=== PATIENT | male | born 1975 | race Caucasian/White ===

== ENCOUNTER 2018-05-12 02:46 | Emergency (ER) | payer OTHER ==
[~2018-05-12] VITALS: Ht 170.2 cm; Wt 70.3 kg
[2018-05-12 02:55] VITALS: BP 124/72
[2018-05-12] MEDS ORDERED: DEXAMETHASONE SOD PHOS 20 MG/5 ML VIAL. IM ONE (03:15)
[2018-05-12] MEDS ORDERED: KETOROLAC 60 MG/2 ML INJ. IM ONE (03:15)
[2018-05-12] MEDS ORDERED: NAPR-683 PO (03:33)
[2018-05-12] MEDS ORDERED: TRAM50TA PO (03:33)
[2018-05-12] MEDS ORDERED: CYCL10TA2 PO (03:33)
--- NOTE | 2018-05-12 03:33 | PHYS DOC ---
Past Medical History Past Medical History: No Pertinent History Past Surgical History: No Surgical History Alcohol Use: None Drug Use: None Adult General Chief Complaint Chief Complaint: BACK PAIN OR INJURY HPI HPI Patient is a 42-year-old male who presents with complaint of right-sided lower back pain that started yesterday when he was moving his couch. Patient states that he felt a twinge in his back and pain has been present ever since. He states that he has tried [id number] medications as well as a hot bath. He states the hot bath and felt but after he got out of the bath the pain has returned. He rates that pain at a 7 out of 10. He denies any radiation of pain into his legs. He denies any loss of bowel or bladder control. He states that pain is worsened with movement. He describes pain as a dull ache. Review of Systems Review of Systems Constitutional: Denies fever or chills [] Respiratory: Denies cough or shortness of breath [] Cardiovascular: Denies chest pain[] GI: Denies abdominal pain, nausea, vomiting [] : Denies dysuria or hematuria [] Musculoskeletal: Complains of lower back pain[] Integument: Denies rash or skin lesions [] Neurologic: Denies loss of bowel or bladder control[] All other systems were reviewed and found to be within normal limits, except as documented in this note. Current Medications Current Medications Current Medications Medications (Trade) Dose Ordered Sig/[facility] Start Time Stop Time Status Last Admin Dose Admin Dexamethasone Sodium Phosphate (Decadron) 10 mg 1X ONCE 05/12/18 03:15 05/12/18 03:16 DC Ketorolac Tromethamine (Toradol Im) 60 mg 1X ONCE 05/12/18 03:15 05/12/18 03:16 DC Allergies Allergies Allergies Coded Allergies Type Severity Reaction Last Updated Verified No Known Drug Allergies 01/09/16 No Physical Exam Physical Exam Constitutional: Well developed, well nourished, no acute distress, non-toxic appearance. [] Neck: Normal range of motion, no tenderness, supple, no stridor. [] Cardiovascular:Heart rate regular rhythm, no murmur [] Lungs & Thorax: Bilateral breath sounds clear to auscultation [] Back: There is tenderness to palpation with palpable spasm noted in the right lumbar paraspinal musculature. [] Neurologic: Alert and oriented X 3, normal motor function, normal sensory function. [] EKG EKG [] Radiology/Procedures Radiology/Procedures [] Course & Med Decision Making Course & Med Decision Making Pertinent Labs and Imaging studies reviewed. (See chart for details) [] Dragon Disclaimer Dragon Disclaimer This electronic medical record was generated, in whole or in part, using a voice recognition dictation system. Departure Departure Impression: Primary Impression: Acute lumbar myofascial strain Disposition: HOME, SELF-CARE Condition: STABLE Referrals: NO PCP (PCP) Patient Instructions: Lumbosacral Strain Scripts Naproxen (NAPROSYN) 500 Mg Tablet 1 TAB PO BID PRN for PAIN, #20 TAB Prov: YUMIKO PRATT Jr. DO 05/12/18 Tramadol Hcl (TRAMADOL HCL) 50 Mg Tablet 50 MG PO Q6HRS PRN for PAIN, #15 TAB Prov: YUMIKO PRATT Jr. DO 05/12/18 Cyclobenzaprine Hcl (CYCLOBENZAPRINE HCL) 10 Mg Tablet 1 TAB PO TID PRN for MUSCLE SPASMS, #15 TAB Prov: YUMIKO PRATT Jr. DO 05/12/18 Problem Qualifiers Primary Impression: Acute lumbar myofascial strain Encounter type: initial encounter Qualified Codes: S39.012A - Strain of muscle, fascia and tendon of lower back, initial encounter YUMIKO PRATT Jr., DO May 12, 2018 03:33
== END 2018-05-12 03:51 | disposition home or self-care (01) ==
LOC: ER 02:46
DX: S39.012A Strain of muscle, fascia and tendon of lower back, initial encounter (principal); X50.0XXA Overexertion from strenuous movement or load, initial encounter; Y93.89 Activity, other specified; Y92.89 Other specified places as the place of occurrence of the external cause; Y99.8 Other external cause status
CPT/HCPCS: 96372; 99284; J1100; J1885

== ENCOUNTER 2019-11-07 06:47 | Emergency (ER) | payer SELFPAY ==
[~2019-11-07] VITALS: Ht 165.1 cm; Wt 70.4 kg
[~2019-11-07 06:47] MED LIST: CYCL10TA2 PO; NAPR-683 PO; TRAM50TA PO
[2019-11-07] MEDS: DIPH,PERTUSS(ACELL),TET VAC/PF 0.5 ML SYRINGE. VAX IM ONE (07:44)
[2019-11-07 07:49] LABS: CALCIUM 9.2 mg/dL (8.5-10.1); CREATININE 1.1 mg/dL (0.7-1.3); GFR 72.4; POTASSIUM 3.4 mmol/L (3.5-5.1)
[2019-11-07 07:55] LABS: BASO # 0.1 x10^3/uL (0.0-0.2); BASO % 1 % (0-3); EOS % 0 % (0-3); HEMATOCRIT 43.9 % (39.0-53.0); HEMOGLOBIN 15.1 g/dL (13.0-17.5); LYMPH # 1.7 x10^3/uL (1.0-4.8); LYMPH % 20 % (24-48); MEAN CORPUSCULAR HEMOGLOBIN 31 pg (25-35); MEAN CORPUSCULAR HGB CONC 34 g/dL (31-37); MEAN CORPUSCULAR VOLUME 91 fL (79-100); MONO # 0.5 x10^3/uL (0.0-1.1); MONO % 6 % (0-9); NEUT # 5.8 x10^3/uL (1.8-7.7); NEUT % 72 % (31-73); PLATELET COUNT 234 x10^3/uL (140-400); RED BLOOD COUNT 4.84 x10^6/uL (4.30-5.70); RED CELL DISTRIBUTION WIDTH 13.3 % (11.5-14.5); WHITE BLOOD COUNT 8.1 x10^3/uL (4.0-11.0)
[2019-11-07 07:56] LABS: ACETAMIN < 2 mcg/ml (10-30); ETHANOL < 10 mg/dL (0-10)
[2019-11-07 07:57] LABS: ALBUMIN 4.1 g/dL (3.4-5.0); ALBUMIN/GLOBULIN RATIO 1.4 (1.0-1.7); TOTAL BILIRUBIN 0.7 mg/dL (0.2-1.0)
[2019-11-07 08:51] LABS: BILIRUBIN,URINE NEGATIVE (NEG); CLARITY,URINE CLEAR; COLOR,URINE YELLOW; NITRITE,URINE NEGATIVE (NEG); PH,URINE 5.5 (<5.0-8.0); PROTEIN,URINE NEGATIVE (NEG-TRACE); UROBILINOGEN,URINE 0.2 mg/dL (0.2 mg/dL)
[2019-11-07 08:53] LABS: BARBITURATES NEG (NEG); BENZODIAZEPINES NEG (NEG); CANNABINOIDS POS (NEG); COCAINE NEG (NEG); METHADONE NEG (NEG); OPIATES NEG (NEG); PHENCYCLIDINE NEG (NEG)
[2019-11-07 08:54] LABS: AMPHETAMINE/METHAMPHETAMINE POS (NEG)
[2019-11-07 09:17] LABS: BACTERIA,URINE 0 /HPF (0-FEW); RBC,URINE 0 /HPF (0-2); SQUAMOUS EPITHELIAL CELL,UR FEW /LPF; WBC,URINE 0 /HPF (0-4)
[2019-11-07 09:45] VITALS: BP 136/87
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
== END 2019-11-07 09:58 | disposition home or self-care (01) ==
LOC: ER 06:47 → EEVIPCON 06:47 → ER 09:58
DX: S60.812A Abrasion of left wrist, initial encounter (principal); F15.90 Other stimulant use, unspecified, uncomplicated; R44.1 Visual hallucinations; X58.XXXA Exposure to other specified factors, initial encounter; Y93.89 Activity, other specified; Y92.89 Other specified places as the place of occurrence of the external cause; Y99.8 Other external cause status
CPT/HCPCS: 36415; 80053; 80307; 80329; 81001; 85025; 90471; 90715; 99285; G0480

== ENCOUNTER 2021-02-10 09:34 | Emergency (ER) | payer OTHER ==
[~2021-02-10] VITALS: Ht 165.1 cm; Wt 72.7 kg
--- NOTE | 2021-02-10 10:13 | PHYS DOC ---
Past Medical History Past Medical History: No Pertinent History Past Surgical History: No Surgical History Smoking Status: Never Smoker Alcohol Use: Occasionally Drug Use: None General Adult EDM: Chief Complaint: FLANK PAIN HPI: HPI: Patient is a 45 year old male who present to ER due to right lower abdominal pain that radiates to his right testicle area started at 5 AM this morning woke him up. Patient denies any fever, no nausea vomiting. Patient denies any penile discharge. Patient denies any history of kidney stone, denies history of hernia. Patient denies any heavy lifting lately. Review of Systems: Review of Systems: Constitutional: Denies fever or chills. [] Eyes: Denies change in visual acuity. [] HENT: Denies nasal congestion or sore throat. [] Respiratory: Denies cough or shortness of breath. [] Cardiovascular: Denies chest pain or edema. [] GI: Positive for right side abdominal pain, radiating to right scrotum area : Denies dysuria. [] Musculoskeletal: Denies back pain or joint pain. [] Integument: Denies rash. [] Neurologic: Denies headache, focal weakness or sensory changes. [] Endocrine: Denies polyuria or polydipsia. [] Lymphatic: Denies swollen glands. [] Psychiatric: Denies depression or anxiety. [] Heart Score: C/O Chest Pain: N/A Risk Factors: Risk Factors: DM, Current or recent (<one month) smoker, HTN, HLP, family history of CAD, obesity. Risk Scores: Score 0 - 3: 2.5% MACE over next 6 weeks - Discharge Home Score 4 - 6: 20.3% MACE over next 6 weeks - Admit for Clinical Observation Score 7 - 10: 72.7% MACE over next 6 weeks - Early Invasive Strategies Allergies: Allergies: Allergies Coded Allergies Type Severity Reaction Last Updated Verified No Known Drug Allergies 01/09/16 No Physical Exam: PE: Constitutional: Well developed, well nourished, no acute distress, non-toxic appearance. [] HENT: Normocephalic, atraumatic, bilateral external ears normal, oropharynx moist, no oral exudates, nose normal. [] Eyes: PERRLA, EOMI, conjunctiva normal, no discharge. [] Neck: Normal range of motion, no tenderness, supple, no stridor. [] Cardiovascular:Heart rate regular rhythm, no murmur [] Lungs & Thorax: Bilateral breath sounds clear to auscultation [] Abdomen: Bowel sounds normal, soft, There is tenderness to palpation in RLQ, right inguinal area is tender to palpation, no scrotal swelling, no masses, no pulsatile masses. [] Skin: Warm, dry, no erythema, no rash. [] Back: No tenderness, no CVA tenderness. [] Extremities: No tenderness, no cyanosis, no clubbing, ROM intact, no edema. [] Neurologic: Alert and oriented X 3, normal motor function, normal sensory function, no focal deficits noted. [] Psychologic: Affect normal, judgement normal, mood normal. [] Current Patient Data: Labs: Current Medications Medications (Trade) Dose Ordered Sig/Tonny Route PRN Reason Start Time Stop Time Status Last Admin Dose Admin Ketorolac Tromethamine (Toradol 30mg Vial) 30 mg 1X ONCE IVP 02/10/21 10:15 02/10/21 10:16 DC 02/10/21 10:20 Ondansetron HCl (Zofran) 4 mg 1X ONCE IVP 02/10/21 10:15 02/10/21 10:16 DC 02/10/21 10:19 Sodium Chloride 1,000 ml @ 1,000 mls/hr 1X ONCE IV 02/10/21 10:15 02/10/21 11:14 DC 02/10/21 10:19 Iohexol (Omnipaque 300 Mg/ml) 75 ml 1X ONCE IV 02/10/21 10:45 02/10/21 10:46 DC 02/10/21 11:03 Info (CONTRAST GIVEN -- Rx MONITORING) 1 each PRN DAILY PRN MC SEE COMMENTS 02/10/21 10:45 02/10/21 12:45 DC Morphine Sulfate (Morphine Sulfate) 4 mg 1X ONCE IV 02/10/21 11:30 02/10/21 11:31 DC 02/10/21 11:43 Tamsulosin HCl (Flomax) 0.4 mg 1X ONCE PO 02/10/21 11:30 02/10/21 11:31 DC 02/10/21 11:43 Vital Signs: Vital Signs Date Time Temp Pulse Resp B/P (MAP) Pulse Ox O2 Delivery O2 Flow Rate FiO2 02/10/21 09:51 98.1 75 18 164/94 (103 96 Room Air 98.1 EKG: EKG: [] Radiology/Procedures: Radiology/Procedures: [][facility] [address] [place] [address] IMAGING REPORT Signed PATIENT: CRISTINE WALLER ACCOUNT: [id number] : 1975 LOCATION: ER AGE: 45 SEX: M EXAM STATUS: REG ER ORD. PHYSICIAN: SINA WASHBURN DO REASON: RIGHT SIDE ABDOMINAL PAIN THAT RADIATING INTO RIGHT TESTICLE AREA PROCEDURE: CT ABD PELV W/ IV CONTRST ONLY Exam Date: 02/10/2021 10:[address] ABDOMEN+PELVIS W Indication: Reason: RIGHT SIDE ABDOMINAL PAIN THAT RADIATING INTO RIGHT TESTICLE AREA / Spl. Instructions: OMNI 300 INJ. 75 MLS / History: . TECHNIQUE: CT examination of the abdomen and pelvis was performed following the administration of nonionic intravenous contrast. One or more of the following dose reduction techniques were utilized: *Automated exposure control (AEC) *Adjustment of mA and/or kV according to patient size *Use of iterative reconstruction technique *CT scan done according to ALARA, or ALARA/IMAGE GENTLY FINDINGS: The visualized lung bases are clear. There is a 1 mm right ureterovesicular junction calculus resulting in mild right hydroureteronephrosis. There is right perinephric stranding and slightly decreased enhancement of the right kidney in comparison to the left consistent with obstructive uropathy. The liver, gallbladder, spleen, pancreas, adrenal glands and kidneys are otherwise normal. Urinary bladder is normal in appearance. There is no bowel obstruction or inflammation. The appendix is normal. Mild atherosclerotic calcifications are seen. No lymphadenopathy or ascites is seen. Degenerative changes are seen in the spine. IMPRESSION: 1 mm right UVJ calculus resulting in mild right hydroureteronephrosis. Electronically signed by: Lenny Odell MD (02/10/2021 11:19 AM) [facility] DICTATED and SIGNED BY: LENNY ODELL MD DATE: 02/10/21 [id number] 0 Course & Med Decision Making: Course & Med Decision Making Pertinent Labs and Imaging studies reviewed. (See chart for details) Patient is a 45-year-old male who present to ER due to right-sided abdominal pain, CT scan of his abdomen pelvis showed he had a small kidney stone at the UV J junction on the right side. Kidney function was normal, no sign of obstruction. Patient was given medication in the ED, he feels much better. Patient was discharged home in stable condition, he was given instructions to follow-up with urology for outpatient evaluation and treatment. Patient was amenable to plan of care. Dragon Disclaimer: Dragon Disclaimer: This electronic medical record was generated, in whole or in part, using a voice recognition dictation system. Departure Departure Impression: Primary Impression: Kidney stone on right side Disposition: HOME / SELF CARE / HOMELESS Condition: IMPROVED Referrals: NO PCP (PCP) PLEASE CALL [facility] UROLOGY DEPARTMENT FOR FOLLOW UP THIS WEEK. The phone number is [phone] Patient Instructions: Kidney Stones Additional Instructions: Thank you for visiting our Emergency Department. We appreciate you trusting us with your care. If any additional problems come up don't hesitate to return to visit us. Please follow up with your primary care provider so they can plan additional care if needed and know about the problem that you had. If symptoms worsen come back to the Emergency Department. Any concerning symptoms that start such as chest pain, shortness of air, weakness or numbness on one side of the body, running high fevers or any other concerning symptoms return to the ER. Scripts Tramadol Hcl (TRAMADOL HCL) 50 Mg Tablet 50 MG PO Q6HRS PRN for PAIN, #20 TAB Prov: SINA WASHBURN DO 02/10/21 Tamsulosin Hcl (FLOMAX) 0.4 Mg Cap.er.24h 1 CAP PO DAILY, #10 CAP 11 Refills Prov: SINA WASHBURN DO 02/10/21 Naproxen Sodium (ANAPROX DS) 550 Mg Tablet 1 TAB PO BID PRN for PAIN for 15 Days, #30 TAB 0 Refills Prov: SINA WASHBURN DO 02/10/21 SINA WASHBURN DO Feb 10, 2021 10:13
[2021-02-10] MEDS ORDERED: KETOROLAC 30 MG/ML VIAL. IVP ONE (10:15)
[2021-02-10] MEDS ORDERED: ONDANSETRON PF 4 MG/2 ML VIAL. IVP ONE (10:15)
[2021-02-10] MEDS ORDERED: IV NORMAL SALINE 1000ML BAG 1,000 ML IV ONE (10:15)
[2021-02-10 10:21] LABS: BASO # 0.1 x10^3/uL (0.0-0.2); BASO % 1 % (0-3); EOS # 0.2 x10^3/uL (0.0-0.7); EOS % 1 % (0-3); HEMOGLOBIN 15.6 g/dL (13.0-17.5); LYMPH # 4.1 x10^3/uL (1.0-4.8); LYMPH % 33 % (24-48); MEAN CORPUSCULAR HEMOGLOBIN 31 pg (25-35); MEAN CORPUSCULAR HGB CONC 34 g/dL (31-37); MEAN CORPUSCULAR VOLUME 92 fL (79-100); MONO # 0.9 x10^3/uL (0.0-1.1); MONO % 7 % (0-9); NEUT # 7.1 x10^3/uL (1.8-7.7); NEUT % 58 % (31-73); PLATELET COUNT 229 x10^3/uL (140-400); RED BLOOD COUNT 5.01 x10^6/uL (4.30-5.70); RED CELL DISTRIBUTION WIDTH 13.3 % (11.5-14.5); WHITE BLOOD COUNT 12.3 x10^3/uL (4.0-11.0)
[2021-02-10 10:24] LABS: BILIRUBIN,URINE SMALL (NEG); CLARITY,URINE CLOUDY; COLOR,URINE YELLOW; NITRITE,URINE NEGATIVE (NEG); PH,URINE 5.5 (<5.0-8.0); PROTEIN,URINE 30 mg/dL (NEG-TRACE); UROBILINOGEN,URINE 0.2 mg/dL (0.2 mg/dL)
[2021-02-10 10:26] LABS: CALCIUM 8.8 mg/dL (8.5-10.1); CREATININE 1.4 mg/dL (0.7-1.3); GFR 54.6; POTASSIUM 4.5 mmol/L (3.5-5.1)
[2021-02-10 10:33] LABS: ALBUMIN 4.2 g/dL (3.4-5.0); ALBUMIN/GLOBULIN RATIO 1.4 (1.0-1.7); TOTAL BILIRUBIN 0.6 mg/dL (0.2-1.0); TOTAL PROTEIN 7.3 g/dL (6.4-8.2)
[2021-02-10 10:42] LABS: BACTERIA,URINE 0 /HPF (0-FEW); WBC,URINE 0 /HPF (0-4)
[2021-02-10] MEDS ORDERED: IOHEXOL 300 MG/ML 100ML VIAL. IV ONE (10:45)
[2021-02-10] MEDS ORDERED: CONTRAST GIVEN. MC PRN (10:45)
--- NOTE | 2021-02-10 11:21 | RAD ---
Exam Date: 02/10/2021 10:[address] ABDOMEN+PELVIS W Indication: Reason: RIGHT SIDE ABDOMINAL PAIN THAT RADIATING INTO RIGHT TESTICLE AREA / Spl. Instruct ions: OMNI 300 INJ. 75 MLS / History: . TECHNIQUE: CT examination of the abdomen and pelvis was performed following the administration of no nionic intravenous contrast. One or more of the following dose reduction techniques were utilized: *Automated exposure control (AEC) *Adjustment of mA and/or kV according to patient size *Use of iterative reconstruction technique *CT scan done according to ALARA, or ALARA/IMAGE GENTLY FINDINGS: The visualized lung bases are clear. There is a 1 mm right ureterovesicular junction calculus resulting in mild right hydroureteronephrosi s. There is right perinephric stranding and slightly decreased enhancement of the right kidney in co mparison to the left consistent with obstructive uropathy. The liver, gallbladder, spleen, pancreas, adrenal glands and kidneys are otherwise normal. Urinary bladder is normal in appearance. There is no bowel obstruction or inflammation. The appendix is normal. Mild atherosclerotic calcifications are seen. No lymphadenopathy or ascites is seen. Degenerative changes are seen in the spine. IMPRESSION: 1 mm right UVJ calculus resulting in mild right hydroureteronephrosis. Electronically signed by: Rogelio Pretty MD (02/10/2021 11:19 AM) [facility]
[2021-02-10 11:30] VITALS: BP 172/80
[2021-02-10] MEDS ORDERED: MORPHINE SULFATE 4 MG/ML INJ. IV ONE (11:30)
[2021-02-10] MEDS ORDERED: TAMSULOSIN 0.4 MG CAP.ER.24H. PO ONE (11:30)
[2021-02-10] MEDS ORDERED: NAPR-682 PO (12:11)
[2021-02-10] MEDS ORDERED: TRAM50TA PO ×2 (12:11→13:35)
[2021-02-10] MEDS ORDERED: TAMS0.4C97 PO (12:11)
== END 2021-02-10 12:44 | disposition home or self-care (01) ==
LOC: ER 09:34
DX: N13.2 Hydronephrosis with renal and ureteral calculous obstruction (principal)
CPT/HCPCS: 36415; 74177; 80053; 81001; 83690; 85025; 96361; 96374; 96375; 99285; J1885; J2270; J2405; J7030; Q9967